=== PATIENT | male | born 1955 | race African-American/Black ===

== ENCOUNTER 2016-04-09 11:46 | Emergency (ER) | payer MEDICAID ==
[~2016-04-09] VITALS: Ht 175.3 cm; Wt 94.3 kg
[~2016-04-09 11:46] MED LIST: ADVIL100 M2 ORAL; AMLODIPINE BESY10 MG ORAL; AMLODIPINE-ATO1 EAC4 ORAL; ANTIVERT12.5 MG ORAL; ASPIRIN EC81 MG ORAL; CARVEDILOL25 MG ORAL; HYDROCHLOROTHIA25 MG ORAL; IMODIUM MULTI-1 EACH PO; LISINOPRIL40 MG ORAL; LISINOPRIL5 MG ORAL; MULTILEX-T-M W1 EACH PO; OMEPRAZOLE10 M1 ORAL; OMEPRAZOLE20 M2 ORAL; PRAVASTATIN SOD20 M1 ORAL
[2016-04-09 12:15] VITALS: BP 108/63
--- NOTE | 2016-04-09 12:29 | Emergency Room Report ---
History of Present Illness General Chief Complaint: Chest Pain Source: Patient Present Illness HPI Patient presents with complaints of epigastric discomfort Burning sensation into the mid esophageal area Patient was dealing with this problem over several months He was seen by his primary physician after discharge from the hospital 2 weeks ago states that he was set up for blood work and evaluation last week but never happened The burning sensation is worsened Denies any vomiting or diarrhea Patient's states that he needs to see a GI specialist Patient denies any fevers or chills Pain is 4/10 burning sensation Allergies: Coded Allergies: No Known Allergies (Unverified , 12/18/14) Patient History Past Medical History: see triage record Pertinent Family History: none Reviewed Nursing Documentation: PMH: Agreed, PSxH: Agreed Nursing Documentation-PMH Past Medical History: No History, Except For Hx Cardiac Problems: Yes - [place] in 2005 Hx Hypertension: Yes Hx Cancer: No Hx Gastrointestinal Problems: Yes - GERD Hx Neurological Problems: No Review of Systems All Other Systems: negative except mentioned in HPI Physical Exam Vital Signs Date Time Temp Pulse Resp B/P Pulse Ox O2 Delivery O2 Flow Rate FiO2 04/09/16 11:58 98.2 79 18 102/71 94 Room Air Sp02 EP Interpretation: reviewed, normal General Appearance: well appearing, no apparent distress Head: normocephalic, atraumatic Eyes: bilateral eye EOMI, bilateral eye PERRL ENT: hearing grossly normal, normal pharynx, TMs + canals normal, uvula midline Neck: full range of motion, supple, no meningismus, no bony tend Respiratory: lungs clear, normal breath sounds, no rhonchi, no respiratory distress, no retraction, no accessory muscle use Cardiovascular #1: normal peripheral pulses, regular rate, rhythm, no edema, no gallop, no JVD, no murmur Gastrointestinal: normal bowel sounds, non tender, soft, no mass, no organomegaly, non-distended, no guarding, no hernia, no pulsatile mass, no rebound Genitourinary: no CVA tenderness Musculoskeletal: normal inspection Neurologic: oriented x3, responsive, generation manager III-XII nml as tested, motor strength/ tone normal, sensory intact Psychiatric: mood/affect normal Skin: normal color, no rash, warm/dry, palpation normal Lymphatic: normal inspection, no adenopathy Medical Decision Making Diagnostic Impression: Primary Impression: Chest pain Additional Impressions: Renal insufficiency Abdominal pain ER Course Patient is a fairly complex patient with multiple differential to consideration including but not limited to cardiac cardiopulmonary and vascular emergencies patients discomfort and presentation appears to be mainly epigastric labs repeated were negative ekg shows no change pt has had a recent hosptalization and is stable for close outpatient follow up Labs Test 04/09/16 12:30 White Blood Count 9.4 K/UL (4.8-10.8) Red Blood Count 5.28 M/UL (4.70-6.10) Hemoglobin 15.8 G/DL (14.2-18.0) Hematocrit 49.2 % (42.0-52.0) Mean Corpuscular Volume 93 FL (80-99) Mean Corpuscular Hemoglobin 29.9 PG (27.0-31.0) Mean Corpuscular Hemoglobin Concent 32.1 G/DL (32.0-36.0) Red Cell Distribution Width 12.6 % (11.6-14.8) Platelet Count 324 K/UL (150-450) Mean Platelet Volume 7.9 FL (6.5-10.1) Neutrophils (%) (Auto) 70.5 % (45.0-75.0) Lymphocytes (%) (Auto) 18.6 % (20.0-45.0) Monocytes (%) (Auto) 5.9 % (1.0-10.0) Eosinophils (%) (Auto) 4.0 % (0.0-3.0) Basophils (%) (Auto) 1.1 % (0.0-2.0) Sodium Level 141 mEQ/L (135-145) Potassium Level 4.1 mEQ/L (3.4-4.9) Chloride Level 99 mEQ/L (98-107) Carbon Dioxide Level 29 mEQ/L (20-30) Anion Gap 13 (5-15) Blood Urea Nitrogen 29 mg/dL (7-23) Creatinine 2.9 mg/dL (0.7-1.2) Estimat Glomerular Filtration Rate 26.9 mL/min (>60) Glucose Level 144 mg/dL (74-106) Calcium Level 9.5 mg/dL (8.6-10.2) Total Bilirubin 0.4 mg/dL (0.0-1.2) Aspartate Amino Transf (AST/SGOT) 23 U/L (5-40) Alanine Aminotransferase (ALT/SGPT) 25 U/L (3-41) Alkaline Phosphatase 63 U/L (40-129) Troponin I < 0.30 ng/mL (<=0.30) Total Protein 7.1 g/dL (6.6-8.7) Albumin 4.1 g/dL (3.5-5.2) Globulin 3.0 g/dL Albumin/Globulin Ratio 1.3 (1.0-2.7) Lipase 65 U/L (< 60) EKG Diagnostic Results Rate: normal Rhythm: NSR ST Segments: other - non specific st and t wave changes Rhythm Strip Diag. Results EP Interpretation: yes Rate: 77 Rhythm: NSR, no PVC's, no ectopy Last Vital Signs Date Time Temp Pulse Resp B/P Pulse Ox O2 Delivery O2 Flow Rate FiO2 04/09/16 12:15 98.6 72 18 108/63 95 Room Air Status: improved Disposition: HOME, SELF-CARE Condition: Improved Scripts Famotidine (PEPCID) 40 Mg Tablet 40 MG PO DAILY, #7 TAB 0 Refills Prov: CAMRON LAWRENCE D.O. 04/09/16 Additional Instructions: Patient is provided with the discharge instructions notified to follow up with primary doctor in the next 2-3 days otherwise return to the er with any worsening symptoms. CAMRON LAWRENCE D.O. Apr 09, 2016 12:29
[2016-04-09 12:41] LABS: BASOPHILS % (AUTO) 1.1 % (0.0-2.0); LYMPHOCYTES % (AUTO) 18.6 % (20.0-45.0); MEAN CORPUSCULAR HEMOGLOBIN 29.9 PG (27.0-31.0); MEAN CORPUSCULAR HGB CONC 32.1 G/DL (32.0-36.0); MEAN CORPUSCULAR VOLUME 93 FL (80-99); MEAN PLATELET VOLUME 7.9 FL (6.5-10.1); MONOCYTES % (AUTO) 5.9 % (1.0-10.0); NEUTROPHILS % (AUTO) 70.5 % (45.0-75.0); PLATELET COUNT 324 K/UL (150-450); RED BLOOD COUNT 5.28 M/UL (4.70-6.10); RED CELL DISTRIBUTION WIDTH 12.6 % (11.6-14.8); WHITE BLOOD COUNT 9.4 K/UL (4.8-10.8)
[2016-04-09 12:57] LABS: ALBUMIN/GLOBULIN RATIO 1.3 (1.0-2.7); CALCIUM 9.5 mg/dL (8.6-10.2); CREATININE 2.9 mg/dL (0.7-1.2); GLOMERULAR FILTRATION RATE 26.9 mL/min (>60); POTASSIUM 4.1 mEQ/L (3.4-4.9); TOTAL PROTEIN 7.1 g/dL (6.6-8.7)
[2016-04-09 12:59] LABS: TROPONIN I < 0.30 ng/mL (<=0.30)
[2016-04-09] MEDS ORDERED: Dicyclomine HCl 10mg/5ml oral soln ORAL ONE (13:00)
[2016-04-09] MEDS ORDERED: Mylanta II UD 30ml ORAL ONE (13:00)
[2016-04-09] MEDS ORDERED: Lidocaine 2% Visc 15ml soln ORAL ONE (13:00)
[2016-04-09] MEDS ORDERED: PEPCID40 MG PO (13:48)
[2016-04-09 14:02] VITALS: BP 115/68
== END 2016-04-09 14:02 | disposition home or self-care (01) ==
LOC: EMR 12:27
DX: R07.9 Chest pain, unspecified (principal); N28.9 Disorder of kidney and ureter, unspecified; R10.13 Epigastric pain; I10 Essential (primary) hypertension; K21.9 Gastro-esophageal reflux disease without esophagitis; I25.2 Old myocardial infarction
CPT/HCPCS: 36415; 80053; 83690; 84484; 85025; 99283

== ENCOUNTER 2016-04-16 15:10 | Emergency (ER) | payer MEDICAID ==
[~2016-04-16] VITALS: Ht 175.3 cm; Wt 94.3 kg
[~2016-04-16 15:10] MED LIST changes: +PEPCID40 MG PO
[2016-04-16 15:30] VITALS: BP 115/76
--- NOTE | 2016-04-16 16:39 | Emergency Room Report ---
History of Present Illness General Chief Complaint: Pain Source: Patient Present Illness HPI 60 y/o male c/o pain in right great toe x 3 days. States pain occurred while sleeping and is worse with walking. who is accompanying patient at bedside states patient eats a lot of pork and red meat daily and has drank a lot of the past but has been cutting back recently. States that patient has FH of gout in father. No relieving factors and denies taking ibuprofen or APAP. Denies any trauma or DMII or any discharge, drainage, rheumatoid condition or arthritis. Allergies: Coded Allergies: No Known Allergies (Unverified , 12/18/14) Patient History Past Medical History: see triage record Past Surgical History: none Pertinent Family History: none Social History: Reports: alcohol use Immunizations: UTD Reviewed Nursing Documentation: PMH: Agreed, PSxH: Agreed Nursing Documentation-PMH Past Medical History: No History, Except For Hx Cardiac Problems: Yes - [place] in 2006 Hx Hypertension: Yes Hx Cancer: No Hx Gastrointestinal Problems: Yes - GERD Hx Neurological Problems: No Review of Systems All Other Systems: negative except mentioned in HPI Physical Exam Vital Signs Date Time Temp Pulse Resp B/P Pulse Ox O2 Delivery O2 Flow Rate FiO2 04/16/16 15:21 98.1 71 15 115/76 98 Room Air Sp02 EP Interpretation: reviewed, normal General Appearance: no apparent distress, alert, GCS 15, non-toxic Head: normocephalic, atraumatic Eyes: bilateral eye PERRL, bilateral eye normal inspection ENT: hearing grossly normal, no angioedema, normal voice Neck: full range of motion, supple/symm/no masses Respiratory: chest non-tender, lungs clear, normal breath sounds, speaking full sentences Cardiovascular #1: regular rate, rhythm, no edema Cardiovascular #2: 2+ dorsalis pedis (R), 2+ dorsalis pedis (L) Musculoskeletal: gait/station normal, normal range of motion, inflammation - right 1st MTP, swelling - right 1st MTP, tender - right 1st MTP Neurologic: alert, oriented x3, responsive, motor strength/tone normal, sensory intact, speech normal Psychiatric: judgement/insight normal, memory normal, mood/affect normal, no suicidal/homicidal ideation Skin: normal color, no rash, warm/dry, well hydrated Lymphatic: no adenopathy Medical Decision Making PA Attestation Dr. Anglin is my supervising physician with whom patient management has been discussed with. 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 presents to the ED c/o right foot pain x 3 days Ddx considered but are not limited to arthritis, gout attack, cellulitis Vital signs: are WNL, pt. is afebrile H&PE are most consistent with gout attack ORDERS: CBC, CMP, Uric Acid, XR right foot ED INTERVENTIONS: Prednisone 60mg. DISCHARGE: At this time pt. is stable for d/c to home. Will provide printed patient care instructions, and any necessary prescriptions. Care plan and follow up instructions have been discussed with the patient prior to discharge. Laboratory Tests Test 04/16/16 16:10 White Blood Count 11.4 K/UL (4.8-10.8) H Red Blood Count 5.43 M/UL (4.70-6.10) Hemoglobin 16.3 G/DL (14.2-18.0) Hematocrit 49.8 % (42.0-52.0) Mean Corpuscular Volume 92 FL (80-99) Mean Corpuscular Hemoglobin 29.9 PG (27.0-31.0) Mean Corpuscular Hemoglobin Concent 32.7 G/DL (32.0-36.0) Red Cell Distribution Width 12.8 % (11.6-14.8) Platelet Count 373 K/UL (150-450) Mean Platelet Volume 7.4 FL (6.5-10.1) Neutrophils (%) (Auto) 70.9 % (45.0-75.0) Lymphocytes (%) (Auto) 18.9 % (20.0-45.0) L Monocytes (%) (Auto) 6.4 % (1.0-10.0) Eosinophils (%) (Auto) 3.0 % (0.0-3.0) Basophils (%) (Auto) 0.8 % (0.0-2.0) Sodium Level 140 mEQ/L (135-145) Potassium Level 4.3 mEQ/L (3.4-4.9) Chloride Level 100 mEQ/L (98-107) Carbon Dioxide Level 24 mEQ/L (20-30) Anion Gap 16 (5-15) H Blood Urea Nitrogen 35 mg/dL (7-23) H Creatinine 3.2 mg/dL (0.7-1.2) H Estimate Glomerular Filtration Rate 24.0 mL/min (>60) Glucose Level 87 mg/dL (74-106) Uric Acid 11.7 mg/dL (3.0-7.5) H Calcium Level 9.2 mg/dL (8.6-10.2) Total Bilirubin 0.2 mg/dL (0.0-1.2) Aspartate Amino Transferase (AST) 24 U/L (5-40) Alanine Aminotransferase (ALT) 26 U/L (3-41) Alkaline Phosphatase 66 U/L (40-129) Total Protein 7.4 g/dL (6.6-8.7) Albumin 4.3 g/dL (3.5-5.2) Globulin 3.1 g/dL Albumin/Globulin Ratio 1.3 (1.0-2.7) Other X-Ray Diagnostic Results Other X-Ray Diagnostic Results : X-Ray Ordered: Right foot Date: Apr 16, 2016 EP Interpretation: Yes Findings: no fractures, no dislocation, no soft tissue swelling Number of Views: 3 Last Vital Signs Date Time Temp Pulse Resp B/P Pulse Ox O2 Delivery O2 Flow Rate FiO2 04/16/16 15:30 98.1 71 15 115/76 98 Room Air Disposition: HOME, SELF-CARE Condition: Stable Scripts Methylprednisolone* (MEDROL*) 4 Mg Tablet 4 MG ORAL DAILY for 6 Days, #1 PACK 0 Refills Prov: BARRETT SIMMONS 04/16/16 Referrals: LORY MOLINA,REFERRING (PCP) Additional Instructions: Patient advised to follow up with PCP regarding poor renal function and management of gout. BARRETT SIMMONS Apr 16, 2016 16:38
[2016-04-16 16:58] LABS: BASOPHILS % (AUTO) 0.8 % (0.0-2.0); LYMPHOCYTES % (AUTO) 18.9 % (20.0-45.0); MEAN CORPUSCULAR HEMOGLOBIN 29.9 PG (27.0-31.0); MEAN CORPUSCULAR HGB CONC 32.7 G/DL (32.0-36.0); MEAN CORPUSCULAR VOLUME 92 FL (80-99); MEAN PLATELET VOLUME 7.4 FL (6.5-10.1); MONOCYTES % (AUTO) 6.4 % (1.0-10.0); NEUTROPHILS % (AUTO) 70.9 % (45.0-75.0); PLATELET COUNT 373 K/UL (150-450); RED BLOOD COUNT 5.43 M/UL (4.70-6.10); RED CELL DISTRIBUTION WIDTH 12.8 % (11.6-14.8); WHITE BLOOD COUNT 11.4 K/UL (4.8-10.8)
[2016-04-16 17:12] LABS: ALBUMIN/GLOBULIN RATIO 1.3 (1.0-2.7); CALCIUM 9.2 mg/dL (8.6-10.2); CREATININE 3.2 mg/dL (0.7-1.2); POTASSIUM 4.3 mEQ/L (3.4-4.9); TOTAL PROTEIN 7.4 g/dL (6.6-8.7); URIC ACID 11.7 mg/dL (3.0-7.5)
[2016-04-16] MEDS ORDERED: PredniSONE 20mg tab ORAL ONE (17:15)
[2016-04-16] MEDS ORDERED: INDOMETHACIN50 MG PO (17:24)
[2016-04-16 17:30] VITALS: BP 105/70
[2016-04-16 17:35] VITALS: BP 105/70
[2016-04-16] MEDS ORDERED: MEDROL4 MG ORAL (17:40)
--- NOTE | 2016-05-16 12:15 | Diagnostic Imaging Report ---
Indication: Pain Comparison: None Findings: 3 views of the right foot were obtained. No acute fractures, malalignment, erosions or periostitis are identified. Narrowing and osteophyte formation of the first MTP joint demonstrated. Bone mineralization is within normal limits. Soft tissues are unremarkable. Impression: No acute injury. First MTP osteoarthritis. Probable flatfoot
== END 2016-04-16 17:35 | disposition home or self-care (01) ==
LOC: EMR 15:50
DX: M10.471 Other secondary gout, right ankle and foot (principal); N18.4 Chronic kidney disease, stage 4 (severe); I10 Essential (primary) hypertension; I25.2 Old myocardial infarction; K21.9 Gastro-esophageal reflux disease without esophagitis
CPT/HCPCS: 36415; 80053; 84550; 85025; 99283

== ENCOUNTER 2016-07-07 08:20 | Emergency (ER) | payer MEDICAID ==
[2016-07-07] VITALS (8 sets, daily range): BP systolic 125–167; BP diastolic 93–110
[~2016-07-07] VITALS: Ht 175.3 cm; Wt 95.3 kg
[~2016-07-07 08:20] MED LIST changes: +INDOMETHACIN50 MG PO; +MEDROL4 MG ORAL
[2016-07-07] MEDS: Nitroglycerin Subl 0.4mg tab (Bottle Of 25) SL PRN ×3 (09:05→09:51)
[2016-07-07 09:24] LABS: ALBUMIN/GLOBULIN RATIO 1.2 (1.0-2.7); CALCIUM 10.2 mg/dL (8.6-10.2); CREATININE 2.4 mg/dL (0.7-1.2); GLOMERULAR FILTRATION RATE 33.5 mL/min (>60); POTASSIUM 4.2 mEQ/L (3.4-4.9); TOTAL PROTEIN 7.5 g/dL (6.6-8.7)
[2016-07-07 09:25] LABS: EOSINOPHILS % (AUTO) 3.2 % (0.0-3.0); LYMPHOCYTES % (AUTO) 18.8 % (20.0-45.0); MEAN CORPUSCULAR HEMOGLOBIN 28.7 PG (27.0-31.0); MEAN CORPUSCULAR HGB CONC 31.3 G/DL (32.0-36.0); MEAN CORPUSCULAR VOLUME 92 FL (80-99); MONOCYTES % (AUTO) 7.6 % (1.0-10.0); NEUTROPHILS % (AUTO) 69.5 % (45.0-75.0); PLATELET COUNT 331 K/UL (150-450); RED BLOOD COUNT 5.93 M/UL (4.70-6.10); RED CELL DISTRIBUTION WIDTH 13.7 % (11.6-14.8); TROPONIN I < 0.30 ng/mL (<=0.30); WHITE BLOOD COUNT 9.7 K/UL (4.8-10.8)
[2016-07-07 09:35] LABS: CKMB 3.4 ng/mL (< 6.7)
--- NOTE | 2016-07-07 10:24 | Emergency Room Report ---
History of Present Illness General Chief Complaint: Chest Pain Source: Patient Present Illness HPI 61-year-old male presents ED complaining of chest pain which started yesterday. Started at rest. Pain is pressure-like, left-sided, 7/10, nonradiating. No other aggravating relieving factors. Denies shortness of breath. Notes history of high blood pressure and prior OK. States that he ran out of his blood pressure medications several days ago. Denies smoking or drug use. No other aggravating or relieving factors. Denies any other associated symptoms Allergies: Coded Allergies: No Known Allergies (Unverified , 12/18/14) Patient History Past Medical History: HTN, [place], GERD Past Surgical History: none Pertinent Family History: none Social History: Denies: alcohol use, drug use, smoking Immunizations: UTD Reviewed Nursing Documentation: PMH: Agreed, PSxH: Agreed Nursing Documentation-PMH Hx Cardiac Problems: Yes - [place] in 2006 Hx Hypertension: Yes Hx Cancer: No Hx Gastrointestinal Problems: Yes - GERD Hx Neurological Problems: No Review of Systems All Other Systems: negative except mentioned in HPI Physical Exam Vital Signs Date Time Temp Pulse Resp B/P Pulse Ox O2 Delivery O2 Flow Rate FiO2 07/07/16 08:23 97.9 90 20 149/104 94 Room Air 07/07/16 09:30 2.0 Sp02 EP Interpretation: reviewed, normal General Appearance: no apparent distress, alert, GCS 15, non-toxic Head: normocephalic, atraumatic Eyes: bilateral eye PERRL, bilateral eye normal inspection ENT: hearing grossly normal, normal pharynx, no angioedema, normal voice Neck: full range of motion, supple/symm/no masses Respiratory: chest non-tender, lungs clear, normal breath sounds, speaking full sentences Cardiovascular #1: regular rate, rhythm, no edema Cardiovascular #2: 2+ carotid (R), 2+ carotid (L), 2+ radial (R), 2+ radial (L) , 2+ dorsalis pedis (R), 2+ dorsalis pedis (L) Gastrointestinal: normal bowel sounds, non tender, soft, non-distended, no guarding, no rebound Rectal: deferred Genitourinary: normal inspection, no CVA tenderness Musculoskeletal: back normal, gait/station normal, normal range of motion, non- tender Neurologic: alert, oriented x3, responsive, motor strength/tone normal, sensory intact, speech normal Psychiatric: judgement/insight normal, memory normal, mood/affect normal, no suicidal/homicidal ideation Reflexes: 3+ bicep (R), 3+ bicep (L), 3+ tricep (R), 3+ tricep (L), 3+ knee (R) , 3+ knee (L) Skin: normal color, no rash, warm/dry, well hydrated Lymphatic: no adenopathy Medical Decision Making Diagnostic Impression: Primary Impression: ACS (acute coronary syndrome) Additional Impressions: Renal failure HTN (hypertension) Qualified Codes: I10 - Essential (primary) hypertension ER Course Hospital Course 61-year-old male presents ED complaining of left-sided chest pain Differential diagnoses include: OK/unstable angina, contusion, muscle strain, PTX, rib fracture Clinical course Patient placed on stretcher. on lunchroom monitor. After initial history and physical I ordered labs, EKG, chest x-ray, NTG X 3 labs reviewed- no leukocytosis, hb/hct stable, BUN/Cr elevated, trop negative EKG - NSR, no acute changes Chest x-ray- no acute process ASA given. patient BP initially elevated and improved after nitroglycerin x3. Because of insurance patient will be transferred I. I feel this is a highly complex case requiring extensive working including EKG/Rhythm strip, Xray/CT/US, Blood/urine lab work, repeat exams while in ED, and administration of strong opiates/narcotics for pain control, admission to hospital or close patient follow up. Diagnosis - ACS, renal failure, hypertension Transferred in serious condition Labs Test 07/07/16 08:50 White Blood Count 9.7 K/UL (4.8-10.8) Red Blood Count 5.93 M/UL (4.70-6.10) Hemoglobin 17.0 G/DL (14.2-18.0) Hematocrit 54.4 % (42.0-52.0) Mean Corpuscular Volume 92 FL (80-99) Mean Corpuscular Hemoglobin 28.7 PG (27.0-31.0) Mean Corpuscular Hemoglobin Concent 31.3 G/DL (32.0-36.0) Red Cell Distribution Width 13.7 % (11.6-14.8) Platelet Count 331 K/UL (150-450) Mean Platelet Volume 8.0 FL (6.5-10.1) Neutrophils (%) (Auto) 69.5 % (45.0-75.0) Lymphocytes (%) (Auto) 18.8 % (20.0-45.0) Monocytes (%) (Auto) 7.6 % (1.0-10.0) Eosinophils (%) (Auto) 3.2 % (0.0-3.0) Basophils (%) (Auto) 1.0 % (0.0-2.0) Sodium Level 139 mEQ/L (135-145) Potassium Level 4.2 mEQ/L (3.4-4.9) Chloride Level 100 mEQ/L (98-107) Carbon Dioxide Level 26 mEQ/L (20-30) Anion Gap 13 (5-15) Blood Urea Nitrogen 29 mg/dL (7-23) Creatinine 2.4 mg/dL (0.7-1.2) Estimat Glomerular Filtration Rate 33.5 mL/min (>60) Glucose Level 97 mg/dL (74-106) Calcium Level 10.2 mg/dL (8.6-10.2) Total Bilirubin 0.5 mg/dL (0.0-1.2) Aspartate Amino Transf (AST/SGOT) 35 U/L (5-40) Alanine Aminotransferase (ALT/SGPT) 46 U/L (3-41) Alkaline Phosphatase 63 U/L (40-129) Total Creatine Kinase 83 U/L (38-174) Creatine Kinase MB 3.4 ng/mL (< 6.7) Creatine Kinase MB Relative Index 4.0 Troponin I < 0.30 ng/mL (<=0.30) Pro-B-Type Natriuretic Peptide 157 pg/mL (0-125) Total Protein 7.5 g/dL (6.6-8.7) Albumin 4.2 g/dL (3.5-5.2) Globulin 3.3 g/dL Albumin/Globulin Ratio 1.2 (1.0-2.7) EKG Diagnostic Results Rate: normal Rhythm: NSR ST Segments: no acute changes ASA given to the pt in ED: Yes Rhythm Strip Diag. Results EP Interpretation: yes Rhythm: NSR, no PVC's, no ectopy Chest X-Ray Diagnostic Results EP Interpretation: Yes Findings: no consolidation, no effusion, no pneumothorax, no acute cardiopulmonary disease Number of Views: 1 Last Vital Signs Date Time Temp Pulse Resp B/P Pulse Ox O2 Delivery O2 Flow Rate FiO2 07/07/16 10:00 80 18 148/105 97 Nasal Cannula 2.0 07/07/16 09:39 97.9 Status: improved Disposition: XFER SHT-TRM HOSP Condition: Serious Referrals: LORY MOLINA,REFERRING (PCP) JOAN LOOMIS M.D. Jul 07, 2016 10:24
--- NOTE | 2016-07-07 12:00 | Diagnostic Imaging Report ---
Indications: Chest pain Technique: Portable AP chest Findings: Comparison: 02/26/2016 Inspiratory effort has modestly improved. Linear density persists in right midlung. Left lung remains clear. Cardiac silhouette remains upper limits of normal in size. Pulmonary vasculature remains within normal limits. Mild elongation of thoracic aorta unchanged. Otherwise, no abnormal mediastinal widening. No pleural disease demonstrated. IMPRESSION: No evidence of acute cardiopulmonary disease, unchanged Persistent subsegmental atelectasis versus scarring versus focal prominence of right minor fissure right midlung
== END 2016-07-07 13:34 | disposition short-term general hospital (02) ==
LOC: EMR 08:59 → EDBEDREQ 09:07 → EMR 13:34
DX: I24.9 Acute ischemic heart disease, unspecified (principal); I10 Essential (primary) hypertension; N19 Unspecified kidney failure; I25.2 Old myocardial infarction; K21.9 Gastro-esophageal reflux disease without esophagitis
CPT/HCPCS: 36415; 71010; 80053; 80300; 82550; 82553; 83880; 84484; 85025; 93005; 96360; 96374; 99285; J0360; J7040

== ENCOUNTER 2016-09-08 17:45 | Emergency (ER) | payer MEDICAID ==
[~2016-09-08] VITALS: Ht 175.3 cm; Wt 95.3 kg
[2016-09-08 18:15] VITALS: BP 172/100
[2016-09-08] MEDS ORDERED: Lidocaine 2% Visc 15ml soln ORAL ONE (18:30)
[2016-09-08] MEDS ORDERED: Famotidine 20 MG/ 2ML VIAL IVP ONE (18:30)
[2016-09-08] MEDS ORDERED: Lisinopril 10mg tab ORAL ONE (18:30)
[2016-09-08] MEDS ORDERED: Mylanta II UD 30ml ORAL ONE (18:30)
[2016-09-08 18:55] LABS: BASOPHILS % (AUTO) 1.3 % (0.0-2.0); EOSINOPHILS % (AUTO) 3.5 % (0.0-3.0); LYMPHOCYTES % (AUTO) 22.5 % (20.0-45.0); MEAN CORPUSCULAR HEMOGLOBIN 30.9 PG (27.0-31.0); MEAN CORPUSCULAR HGB CONC 33.3 G/DL (32.0-36.0); MEAN CORPUSCULAR VOLUME 93 FL (80-99); MEAN PLATELET VOLUME 8.4 FL (6.5-10.1); MONOCYTES % (AUTO) 7.1 % (1.0-10.0); NEUTROPHILS % (AUTO) 65.6 % (45.0-75.0); PLATELET COUNT 299 K/UL (150-450); RED CELL DISTRIBUTION WIDTH 13.4 % (11.6-14.8); WHITE BLOOD COUNT 9.3 K/UL (4.8-10.8)
[2016-09-08] MEDS ORDERED: LISINOPRIL5 MG ORAL (19:02)
[2016-09-08] MEDS ORDERED: ATORVASTATIN CA20 MG ORAL (19:02)
[2016-09-08] MEDS ORDERED: ISOSORBIDE PO (19:02)
--- NOTE | 2016-09-08 19:02 | Emergency Room Report ---
History of Present Illness General Chief Complaint: Chest Pain Source: Patient Present Illness HPI The patient presents with heartburn and epigastric burning. The ground for several weeks now. He was transferred recently with a cardiac evaluation. He states there was no damage to his heart at that time. He is on multiple medications for high blood pressure. He did not take his medicines today. This pain is nonexertional. Patient denies any fevers, productive cough, vomiting, melena. Also complains about versus as his waist. He says that he's been yelling at his significant other. Denies any sore throat at this time. Allergies: Coded Allergies: No Known Allergies (Unverified , 12/18/14) Patient History Past Medical History: see triage record Social History: Reports: alcohol use, Denies: smoking Reviewed Nursing Documentation: PMH: Agreed, PSxH: Agreed Nursing Documentation-PMH Hx Cardiac Problems: Yes - [place] in 2005 Hx Hypertension: Yes Hx Cancer: No Hx Gastrointestinal Problems: Yes - GERD Hx Neurological Problems: No Physical Exam Vital Signs Date Time Temp Pulse Resp B/P Pulse Ox O2 Delivery O2 Flow Rate FiO2 09/08/16 17:57 98.2 61 15 171/116 92 Room Air Medical Decision Making Diagnostic Impression: Primary Impression: GERD (gastroesophageal reflux disease) Additional Impressions: Renal insufficiency HTN (hypertension) ER Course Patient presents with epigastric burning and esophageal reflux symptoms. We to exclude cardiac cause. Pulses blood pressure is high at this time. Evaluation be with EKG, labs and chest x-ray. The patient will be treated with Pepcid, and a GI cocktail with lidocaine and Mylanta. EKG with bradycardia and T-wave abnormalities. Chest x-ray is unremarkable. Labs are significant for a negative troponin and stable renal insufficiency. Patient is improved with treatments a. The pain is esophagus is better. He does complain of a headache. Tylenol codeine was given a. Her graft discussed with the patient about the need to have evaluation for backdoor pylori with endoscopy. In addition he is to have endoscopy to look at his vocal cords. His blood pressure was improved at discharge. The patient is stable for outpatient observation and treatment. Laboratory Tests Test 09/08/16 18:15 09/08/16 21:19 White Blood Count 9.3 K/UL (4.8-10.8) Red Blood Count 5.20 M/UL (4.70-6.10) Hemoglobin 16.0 G/DL (14.2-18.0) Hematocrit 48.2 % (42.0-52.0) Mean Corpuscular Volume 93 FL (80-99) Mean Corpuscular Hemoglobin 30.9 PG (27.0-31.0) Mean Corpuscular Hemoglobin Concent 33.3 G/DL (32.0-36.0) Red Cell Distribution Width 13.4 % (11.6-14.8) Platelet Count 299 K/UL (150-450) Mean Platelet Volume 8.4 FL (6.5-10.1) Neutrophils (%) (Auto) 65.6 % (45.0-75.0) Lymphocytes (%) (Auto) 22.5 % (20.0-45.0) Monocytes (%) (Auto) 7.1 % (1.0-10.0) Eosinophils (%) (Auto) 3.5 % (0.0-3.0) H Basophils (%) (Auto) 1.3 % (0.0-2.0) Prothrombin Time 10.5 SEC (9.30-11.50) Prothrombin Time INR 1.0 (0.9-1.1) PTT 27 SEC (23-33) Sodium Level 143 mEQ/L (135-145) Potassium Level 4.4 mEQ/L (3.4-4.9) Chloride Level 100 mEQ/L (98-107) Carbon Dioxide Level 28 mEQ/L (20-30) Anion Gap 15 (5-15) Blood Urea Nitrogen 26 mg/dL (7-23) H Creatinine 2.4 mg/dL (0.7-1.2) H Estimate Glomerular Filtration Rate 33.5 mL/min (>60) Glucose Level 88 mg/dL (74-106) Calcium Level 10.2 mg/dL (8.6-10.2) Total Bilirubin 0.3 mg/dL (0.0-1.2) Aspartate Amino Transferase (AST) 48 U/L (5-40) H Alanine Aminotransferase (ALT) 49 U/L (3-41) H Alkaline Phosphatase 68 U/L (40-129) Total Creatine Kinase 159 U/L (38-174) Troponin I < 0.30 ng/mL (<=0.30) Pro-B-Type Natriuretic Peptide 139 pg/mL (0-125) H Total Protein 8.4 g/dL (6.6-8.7) Albumin 4.6 g/dL (3.5-5.2) Globulin 3.8 g/dL Albumin/Globulin Ratio 1.2 (1.0-2.7) Urine Color Pending Urine Appearance Pending Urine pH Pending Urine Specific [place] Pending Urine Protein Pending Urine Glucose (UA) Pending Urine Ketones Pending Urine Occult Blood Pending Urine Nitrite Pending Urine Bilirubin Pending Urine Urobilinogen Pending Urine Leukocyte Esterase Pending Urine Opiates Screen Pending Urine Barbiturates Screen Pending Phencyclidine (PCP) Screen Pending Urine Amphetamines Screen Pending Urine Benzodiazepines Screen Pending Urine Cocaine Screen Pending Urine Marijuana (THC) Screen Pending EKG Diagnostic Results Rate: bradycardiac ST Segments: no acute changes Rhythm Strip Diag. Results EP Interpretation: yes Rhythm: no PVC's, no ectopy, other - abdoul Chest X-Ray Diagnostic Results Chest X-Ray Ordered: Yes # of Views/Limited/Complete: 1 View EP Interpretation: No Interpretation: no consolidation, no effusion, no pneumothorax Indication: Chest Pain Impression: No acute disease Interpreting ER Provider: Ruth Status: improved Disposition: HOME, SELF-CARE Condition: Improved Scripts Mag Hydrox/Al Hydrox/Simeth (MAALOX MAXIMUM STRENGTH SUSP) 355 Ml Oral.susp 2 TBS PO Q6HR Y for For Pain, #355 ML Prov: Zacarias Miranda M.D. 09/08/16 Omeprazole (OMEPRAZOLE) 20 Mg Capsule.dr 20 MG ORAL DAILY, #30 CAP Prov: Zacarias Miranda M.D. 09/08/16 Acetaminophen With Codeine (T#3) (TYLENOL #3 TAB*) Y Tab 1 TAB ORAL Q4H Y for For Pain, #14 TAB Prov: Zacarias Miranda M.D. 09/08/16 Referrals: LORY MOLINA,REFERRING (PCP) Zacarias Miranda M.D. Sep 08, 2016 19:02
[2016-09-08] MEDS ORDERED: NITROGLYCERIN0.4 MG SL (19:11)
[2016-09-08 19:12] LABS: ALANINE AMINOTRANSFERASE 49 U/L (3-41); ALBUMIN/GLOBULIN RATIO 1.2 (1.0-2.7); ANION GAP 15 (5-15); ASPARTATE AMINO TRANSFERASE 48 U/L (5-40); CALCIUM 10.2 mg/dL (8.6-10.2); CARBON DIOXIDE 28 mEQ/L (20-30); CHLORIDE 100 mEQ/L (98-107); CREATININE 2.4 mg/dL (0.7-1.2); GLOMERULAR FILTRATION RATE 33.5 mL/min (>60); HEMOLYSIS 38; POTASSIUM 4.4 mEQ/L (3.4-4.9); SODIUM 143 mEQ/L (135-145); TOTAL PROTEIN 8.4 g/dL (6.6-8.7); TROPONIN I < 0.30 ng/mL (<=0.30)
[2016-09-08 19:15] VITALS: BP 144/107
[2016-09-08 19:22] LABS: PROTHROMBIN TIME 10.5 SEC (9.30-11.50)
[2016-09-08] MEDS ORDERED: Tylenol #3 tab (300mg/30mg) ORAL ONE (21:45)
[2016-09-08 21:46] LABS: APPEARANCE,URINE CLEAR; KETONES,URINE NEGATIVE (NEGATIVE); LEUKOCYTE ESTERASE ,URINE NEGATIVE (NEGATIVE); NITRITE,URINE NEGATIVE (NEGATIVE); PH,URINE 5 (4.5-8.0); PROTEIN,URINE 2+ (NEGATIVE); UROBILINOGEN,URINE NORMAL MG/DL (0.0-1.0)
[2016-09-08] MEDS ORDERED: OMEPRAZOLE20 M2 ORAL (21:52)
[2016-09-08] MEDS ORDERED: MAALOX MAXIMUM355 M1 PO (21:52)
[2016-09-08] MEDS ORDERED: ACETAMINOPHEN-1 EAC1 ORAL (21:52)
[2016-09-08 21:58] VITALS: BP 149/94
[2016-09-08 22:02] LABS: RBC,URINE 0-2 /HPF (0 - 0); WBC,URINE 0-2 /HPF (0 - 0)
[2016-09-08 22:05] VITALS: BP 149/94
--- NOTE | 2016-09-09 09:40 | Diagnostic Imaging Report ---
Indication: Chest pain Technique: One view of the chest Comparison: 07/09/16 Findings: Lungs and pleural spaces are clear. Heart size is borderline enlarged. No significant interim change Impression: No acute process
== END 2016-09-08 22:09 | disposition home or self-care (01) ==
LOC: EMR 18:46
DX: K21.9 Gastro-esophageal reflux disease without esophagitis (principal); N28.9 Disorder of kidney and ureter, unspecified; I10 Essential (primary) hypertension; I25.2 Old myocardial infarction; R00.1 Bradycardia, unspecified
CPT/HCPCS: 36415; 71010; 80053; 80300; 81003; 82550; 83880; 84484; 85025; 85610; 85730; 93005; 96374; 99284; S0028

== ENCOUNTER 2017-09-10 23:29 | Emergency (ER) | payer MEDICAID ==
[~2017-09-10] VITALS: Ht 175.3 cm; Wt 95.3 kg
[~2017-09-10 23:29] MED LIST changes: +ACETAMINOPHEN-1 EAC1 ORAL; +ATORVASTATIN CA20 MG ORAL; +ISOSORBIDE PO; +MAALOX MAXIMUM355 M1 PO; +NITROGLYCERIN0.4 MG SL
[2017-09-10 23:58] VITALS: BP 149/90
[2017-09-11] MEDS ORDERED: Norco 5mg/325mg tab ORAL ONE
[2017-09-11] MEDS ORDERED: HYDROCODON-ACE1 EA15 ORAL (00:04)
[2017-09-11] MEDS ORDERED: IBUPROFEN600 MG ORAL (00:04)
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
[2017-09-11 01:45] VITALS: BP 142/88
[2017-09-11 01:46] VITALS: BP 142/88
--- NOTE | 2017-09-14 12:02 | Diagnostic Imaging Report ---
Indication: Neck Pain Findings: 5 views of the cervical spine were obtained. Bones are osteopenic. No fracture or malalignment is identified. There is moderate to severe narrowing and vacuum phenomena involving the C5-6 and C6-7 discs with associated uncovertebral osteophyte formation. There is no foraminal stenosis. Soft tissues are unremarkable. Open-mouth view shows good alignment, but the dens is obscured as are the lateral masses.. IMPRESSION: No acute injury. Degenerative disc disease and arthritis at C5-6 and C6-7. Suboptimal visualization of C1 and the dens.
== END 2017-09-11 01:46 | disposition home or self-care (01) ==
LOC: EMR 23:57
DX: S16.1XXA Strain of muscle, fascia and tendon at neck level, initial encounter (principal); V43.62XA Car passenger injured in collision with other type car in traffic accident, initial encounter; Y92.481 Parking lot as the place of occurrence of the external cause; I10 Essential (primary) hypertension; C14.0 Malignant neoplasm of pharynx, unspecified; Z79.899 Other long term (current) drug therapy; I25.2 Old myocardial infarction; K21.9 Gastro-esophageal reflux disease without esophagitis; M50.322 Other cervical disc degeneration at C5-C6 level
CPT/HCPCS: 72052; 99284

== ENCOUNTER 2018-02-04 18:38 | Emergency (ER) | payer MEDICAID ==
[~2018-02-04] VITALS: Ht 175.3 cm; Wt 93.0 kg
[~2018-02-04 18:38] MED LIST changes: +HYDROCODON-ACE1 EA15 ORAL; +IBUPROFEN600 MG ORAL
[2018-02-04 19:00] VITALS: BP 134/97
[2018-02-04] MEDS ORDERED: Bacitracin Oint UD TOPIC ONE (19:00)
[2018-02-04] MEDS ORDERED: Acetaminophen 500mg (ES) tab ORAL ONE (19:00)
--- NOTE | 2018-02-04 19:02 | Emergency Room Report ---
History of Present Illness General Chief Complaint: Laceration Source: Patient Present Illness HPI 62-year-old male patient presents to ER complaining of coccyx pain and laceration on left lower leg for the past 2 days. Reports that he fell off a ladder "a few feet" high onto his buttock. Denies hitting his head or loss consciousness. Denies bowel or bladder incontinence. Denies pain radiating down legs. Reports taking ibuprofen for pain. reports cut lower leg on "wooden block". Reports up to date on tetanus vaccination. Reports pain with ambulation, states he is able ambulate independently without assistance. Denies fever, chest pain, shortness breath, abdominal pain. Requesting imaging of lower leg and coccyx. Denies knee or ankle pain. Allergies: Coded Allergies: No Known Allergies (Unverified , 12/18/14) Patient History Past Medical History: see triage record Reviewed Nursing Documentation: PMH: Agreed; PSxH: Agreed Nursing Documentation-PMH Hx Cardiac Problems: Yes - ID in 2006 Hx Hypertension: Yes Hx Cancer: Yes - Throat Ca Hx Gastrointestinal Problems: Yes - GERD Hx Neurological Problems: No Review of Systems All Other Systems: negative except mentioned in HPI Physical Exam Vital Signs Date Time Temp Pulse Resp B/P (MAP) Pulse Ox O2 Delivery O2 Flow Rate FiO2 02/04/ 18:43 98.2 74 19 138/101 97 Room Air Sp02 EP Interpretation: reviewed, normal General Appearance: well appearing, no apparent distress, alert, GCS 15, non- toxic Head: normocephalic, atraumatic Eyes: bilateral eye normal inspection, bilateral eye PERRL ENT: hearing grossly normal, normal pharynx, no angioedema, normal voice, uvula midline, moist mucus membranes Neck: full range of motion Respiratory: lungs clear, normal breath sounds, no rhonchi, no respiratory distress, no accessory muscle use, no wheezing, speaking full sentences Cardiovascular #1: regular rate, rhythm, no edema Genitourinary: no CVA tenderness Musculoskeletal: back normal, digits/nails normal, gait/station normal, normal range of motion, non-tender, no calf tenderness, pelvis stable, other - NVI, no deformity, tender - right buttock: 1cm circular contusion, no erythema Neurologic: alert, oriented x3, responsive, motor strength/tone normal, SLR negative, sensory intact, cerebellar normal, normal gait, speech normal Psychiatric: mood/affect normal Skin: laceration - left anterior mid shaft lower le cm healing laceration with scabbing, no surrounding erythema or edema, no red streaking, no pus draining, no bleeding Medical Decision Making PA Attestation Dr. Frankel is my supervising Physician whom patient management has been discussed with. Diagnostic Impression: Primary Impression: Fall from ladder Additional Impressions: Coccyx contusion Laceration ER Course Pt. presents to the ED c/o coccyx pain and laceration on left lower leg. Ddx considered but are not limited to fracture, sprain, strain, contusion, dislocation, laceration, cellulitis, abrasion. No erythema, no warmth to touch, no fever, nontoxic appearing, low suspicion for septic joint. denies bowel or bladder incontinence, denies radiation of pain symptoms, low suspicion for cauda equina. Soft compartments, no pulselessness, no pallor, no paresthesias, low suspicion for compartment syndrome at this time. Vital signs: are WNL, pt. is afebrile Ordered X-ray, CT and pain medication. ER COURSE Does not require Tetanus booster, states he is up to date. Laceration cleaned and Bacitracin applied. Dressed in sterile dressing. will not suture laceration closed, will allow to heal by secondary intention due to length of time since initial injury occurred. Will provide with topical abx at discharge to prevent infection. KEep clean and dry. ER precautions given. Provided with pain medication. An X-ray of the left tib/fib shows negative for acute disease. CT of the pelvis shows Colonic diverticula without diverticulitis. Prostatomegaly without pathologic bladder distention. L4-5 disc protrusion. Mild central canal and left neural foraminal stenosis. No fracture. likely contusion causing pain symptoms. discuss results with PCP. Discuss results with the patient. Provided patient with copy of results. Instructed patient to followup with PCP and discuss results of report with patient, discuss need for further treatment and referral. Patient instructed on RICE method: rest, ice, compression, elevation. Patient instructed on rest, ice and heat. Contact information for orthopedic urgent care provided, follow-up with urgent care if unable to followup with primary care provider and get referral to waste specialist. Followup with primary care provider. Discuss referral to ortho/pain management/ PT as needed. Discuss further imaging with MRI/CT as needed. DISCHARGE: -Rx provided for Tylenol for pain symptoms. Rx provided for lidocaine patches -Rx provided for bacitracin At this time pt. is stable for d/c to home. Patient is resting comfortably, in no acute distress, nontoxic appearing, talking without difficulty. Will provide printed patient care instructions, and any necessary prescriptions. Patient instructed to follow with primary care provider in 3 - 5 days and to request further follow-up as needed. Care plan and follow up instructions have been discussed with the patient prior to discharge. Take medications as directed. Patient questions asked and answered. Patient reports understanding and agreement to treatment plan. ER precautions given, patient instructed to return to ER immediately for any new or worsening of symptoms. - Please note that this Emergency Department Report was dictated using [employer] ambassador technology software, occasionally this can lead to erroneous entry secondary to interpretation by the dictation equipment. Other X-Ray Diagnostic Results Other X-Ray Diagnostic Results : X-Ray ordered: left tib-fib # of Views/Limited Vs Complete: 2 View Indication: Pain EP Interpretation: Yes PA Xray: Interpretation reviewed, by supervising MD, and agrees with findings. Interpretation: no dislocation, no soft tissue swelling, no fractures Impression: No acute disease ALYSON Scribjohn Text Rubin Cedillo PA-C CT/MRI/US Diagnostic Results CT/MRI/US Diagnostic Results : Imaging Test Ordered: CT pelvis Impression Colonic diverticula without diverticulitis. Prostatomegaly without pathologic bladder distention. L4-5 disc protrusion. Mild central canal and left neural foraminal stenosis. No fracture. Last Vital Signs Date Time Temp Pulse Resp B/P (MAP) Pulse Ox O2 Delivery O2 Flow Rate FiO2 02/04/18 18:43 98.2 74 19 138/101 97 Room Air Status: improved Disposition: HOME, SELF-CARE Condition: Stable Scripts Acetaminophen* (TYLENOL EXTRA STRENGTH*) 500 Mg Tablet 500 MG ORAL Q8H PRN for Prn Headache/Temp > 101, #30 TAB 0 Refills Prov: Miko Cedillo 02/04/18 Lidocaine (Lidocaine) 1 Each Adh..patch 5 % TP DAILY for 7 Days, #7 PATCH Prov: Miko Cedillo 02/04/18 Bacitracin/Polymyxin B Sulfate (BACITRACIN-POLYMYXIN OINTMENT) 28.35 Gm Oint...g. 1 APPLIC TP BID, #28 GM Prov: Miko Cedillo 02/04/18 Patient Instructions: Contusion, Nonsutured Laceration Care, Tailbone Injury, [id number] Additional Instructions: Patient instructed to follow up with primary care provider and discuss further referral and imaging at that time. Patient instructed on rest, ice and heat. Keep leg elevated while at home resting, ice affected area. Wound check with primary care provided in 2-3 days. Keep clean and dry. Take medications as directed. Patient questions asked and answered. ER precautions given, patient instructed to return to ER immediately for any new or worsening of symptoms. [facility] [address] [facility], [id number] [email or web address] Miko Cedillo Feb 04, 2018 19:02
[2018-02-04] MEDS ORDERED: LIDOCAINE700 M1 TP (19:52)
[2018-02-04] MEDS ORDERED: BACITRACIN-P28.35 GM TP (19:52)
[2018-02-04] MEDS ORDERED: TYLENOL EXTRA500 MG ORAL (19:52)
[2018-02-04 20:00] VITALS: BP 132/82
--- NOTE | 2018-02-05 10:53 | Diagnostic Imaging Report ---
Indication: Coccygeal pain and laceration, fell on buttock Technique: Noncontrast spiral acquisitions obtained through the pelvis. Multiplanar reconstructions generated. Total dose length product 402 mGycm. CTDIvol(s) 14 mGy. Dose reduction achieved using automated exposure control Comparison: none Findings: No acute fractures. No dislocations. The joint spaces are preserved. No evidence of significant soft tissue contusion or hematoma. The included pelvic viscera demonstrate colonic diverticulosis. The prostate is somewhat prominent. There is degenerative change of the lumbosacral junction. Impression: No acute bony trauma Incidental findings of colonic diverticulosis, degenerative lumbosacral spondylosis, prominent prostate This agrees with the preliminary interpretation provided overnight by [facility] teleradiology service. The CT scanner at [facility] is accredited by the [employer] and the scans are performed using protocols designed to limit radiation exposure to as low as reasonably achievable to attain images of sufficient resolution adequate for diagnostic evaluation.
--- NOTE | 2018-02-05 10:54 | Diagnostic Imaging Report ---
Indication: Pain, trauma Technique: 2 views of the left tibia and fibula Comparison: none Findings: No acute fractures. No dislocations. Joint spaces are preserved. No radiopaque foreign body demonstrated Impression: Negative
== END 2018-02-04 20:22 | disposition home or self-care (01) ==
LOC: EMR 19:17
DX: S30.0XXA Contusion of lower back and pelvis, initial encounter (principal); S81.812A Laceration without foreign body, left lower leg, initial encounter; W11.XXXA Fall on and from ladder, initial encounter; Y92.9 Unspecified place or not applicable; K21.9 Gastro-esophageal reflux disease without esophagitis; I10 Essential (primary) hypertension; Z85.89 Personal history of malignant neoplasm of other organs and systems
CPT/HCPCS: 72192; 99284

== ENCOUNTER 2018-04-21 19:11 | Emergency (ER) | payer MEDICAID ==
[~2018-04-21] VITALS: Ht 175.3 cm; Wt 95.3 kg
[~2018-04-21 19:11] MED LIST changes: +BACITRACIN-P28.35 GM TP; +LIDOCAINE700 M1 TP; +TYLENOL EXTRA500 MG ORAL
[2018-04-21 19:24] VITALS: BP 138/81
--- NOTE | 2018-04-21 19:24 | NUR ---
ED Nurse Note: Pt arrived ED from home. C/o lower back pain today which he fell at home 2 month ago. Pt is A/o x4. Vital signs stable at this time. Waiting for orders.
[2018-04-21] MEDS ORDERED: Ketorolac 60mg Inj IM ONE (19:45)
[2018-04-21] MEDS ORDERED: Cyclobenzaprine 10mg Tab ORAL ONE (19:45)
[2018-04-21 20:30] LABS: APPEARANCE,URINE SLIGHTLY CLOUDY; BILIRUBIN, URINE NEGATIVE (NEGATIVE); COLOR,URINE AMBER; GLUCOSE, URINE (UA) NEGATIVE (NEGATIVE); KETONES,URINE NEGATIVE (NEGATIVE); LEUKOCYTE ESTERASE ,URINE 1+ (NEGATIVE); NITRITE,URINE NEGATIVE (NEGATIVE); PH,URINE 6 (4.5-8.0); PROTEIN,URINE 3+ (NEGATIVE); UROBILINOGEN,URINE 1 MG/DL (0.0-1.0)
[2018-04-21] MEDS ORDERED: CEPHALEXIN500 MG ORAL (20:49)
[2018-04-21] MEDS ORDERED: NORCO 10-325 T1 EACH ORAL (20:49)
[2018-04-21 20:54] VITALS: BP 137/82
--- NOTE | 2018-04-21 20:54 | NUR ---
ED Nurse Note: Pt has seen by Dr. Cedeño. All orders carried out. Meds given. Pt is ready for discharge. D/c instruction and prescription given, Pt verbalized understanding. ID band removed. Pt d/c from ED with steady gait.
--- NOTE | 2018-04-21 22:19 | Emergency Room Report ---
History of Present Illness General Chief Complaint: Lower Back Pain or Injury Source: Patient Present Illness HPI The patient is a 62-year-old male presenting for continued back pain. He was seen in this emergency department The patient is a 62-year-old male presenting for continued back pain. He was seen in this emergency department several months prior after falling off a ladder. He had imaging done at that time which showed a disc herniation. Pain is a 7 out of 10 dull ache and does not radiate from the mid lower back. He has been using ibuprofen which does help. He denies any numbness or tingling. He denies any bowel or bladder incontinence. He denies other symptoms including nausea, vomiting, fever, chills, dysuria, hematuria, abdominal pain Allergies: Coded Allergies: No Known Allergies (Unverified , 12/18/14) Patient History Past Medical History: see triage record Pertinent Family History: none Reviewed Nursing Documentation: PMH: Agreed; PSxH: Agreed Nursing Documentation-PMH Past Medical History: No History, Except For Hx Cardiac Problems: Yes - PR in 2005 Hx Hypertension: Yes Hx Cancer: Yes - Throat Ca Hx Gastrointestinal Problems: Yes - GERD Hx Neurological Problems: No Review of Systems All Other Systems: negative except mentioned in HPI Physical Exam Vital Signs Date Time Temp Pulse Resp B/P (MAP) Pulse Ox O2 Delivery O2 Flow Rate FiO2 04/21/18 19:15 98.2 82 16 140/87 93 Room Air Sp02 EP Interpretation: reviewed, normal General Appearance: no apparent distress, alert, GCS 15, non-toxic Head: normocephalic, atraumatic Eyes: bilateral eye normal inspection, bilateral eye PERRL Respiratory: chest non-tender, lungs clear, normal breath sounds, speaking full sentences Cardiovascular #1: regular rate, rhythm, no edema Gastrointestinal: normal bowel sounds, non tender, soft, non-distended, no guarding, no rebound Genitourinary: normal inspection, no CVA tenderness, penis normal Musculoskeletal: back normal, gait/station normal, normal range of motion, tender - lumbar paraspinal muscles Neurologic: alert, oriented x3, responsive, motor strength/tone normal, sensory intact, speech normal Psychiatric: judgement/insight normal, memory normal, mood/affect normal, no suicidal/homicidal ideation Skin: normal color, no rash, warm/dry, well hydrated Medical Decision Making PA Attestation Dr. Frankel is my supervising physician. Patient management was discussed with my supervising physician Diagnostic Impression: Primary Impression: Lumbar strain Qualified Codes: S39.012A - Strain of muscle, fascia and tendon of lower back , initial encounter Additional Impression: Hematuria Qualified Codes: R31.9 - Hematuria, unspecified ER Course The patient is a 62-year-old male presenting for continued back pain. Ddx considered include but not limited to lumbar strain, degenerative disease, disc herniation, pyelonephritis, among others PE: afebrile. NAD Tenderness to palpation over the bilateral lumbar paraspinal muscles. No midline tenderness or step-offs. No CVA tenderness Normal gait Sensation is intact Urinalysis shows hematuria as well as white blood cells and some bacteria The patient be discharged home with prescription for pain medication and antibiotics for possible UTI/pyelonephritis. He was told he needs to follow-up with his primary doctor as soon as possible as well as possibly obtain referral to urology and/or nephrology. ER precautions given Laboratory Tests Test 04/21/18 20:15 Urine Color Alexia Urine Appearance Slightly cloudy Urine pH 6 (4.5-8.0) Urine Specific Chama 1.010 (1.005-1.035) Urine Protein 3+ (NEGATIVE) H Urine Glucose (UA) Negative (NEGATIVE) Urine Ketones Negative (NEGATIVE) Urine Blood 2+ (NEGATIVE) H Urine Nitrite Negative (NEGATIVE) Urine Bilirubin Negative (NEGATIVE) Urine Ictotest Negative (NEGATIVE) Urine Urobilinogen 1 MG/DL (0.0-1.0) H Urine Leukocyte Esterase 1+ (NEGATIVE) H Urine RBC 5-10 /HPF (0 - 0) H Urine WBC 2-4 /HPF (0 - 0) Urine Squamous Epithelial Cells Occasional /LPF Urine Bacteria Few /HPF (NONE) Urine Mucus Moderate /LPF (NONE/OCC) H Lab Results Impression Urinalysis shows hematuria as well as white blood cells and some bacteria Last Vital Signs Date Time Temp Pulse Resp B/P (MAP) Pulse Ox O2 Delivery O2 Flow Rate FiO2 04/21/18 20:54 98.1 75 16 137/82 96 Room Air Status: improved Disposition: HOME, SELF-CARE Condition: Improved Scripts Cephalexin* (KEFLEX*) 500 Mg Capsule 500 MG ORAL EVERY 6 HOURS, #28 CAP Prov: TERZIAN,CANDIDA P.A. 04/21/18 Hydrocodone Bit/Acetaminophen 10-325* (NORCO 10-325*) 1 Each Tablet 1 TAB ORAL Q6H PRN for For Pain, #10 TAB 0 Refills PRN PAIN Prov: CANDIDA MCLEOD 04/21/18 Patient Instructions: Back Pain, Adult, Proteinuria, Hematuria, Adult Additional Instructions: The patient was informed of the urine results including protein and blood in the urine. He was told he needs to follow-up with his primary doctor and kidney doctor as soon as possible. Please return to the emergency Department if you notice any symptoms including: Continued or worsening back pain, fever, chills, pain with urination CANDIDA MCLEOD Apr 21, 2018 22:19
== END 2018-04-21 20:54 | disposition home or self-care (01) ==
LOC: EMR 19:45
DX: S39.012A Strain of muscle, fascia and tendon of lower back, initial encounter (principal); W11.XXXA Fall on and from ladder, initial encounter; Y92.9 Unspecified place or not applicable; I10 Essential (primary) hypertension; I25.2 Old myocardial infarction; Z85.89 Personal history of malignant neoplasm of other organs and systems; K21.9 Gastro-esophageal reflux disease without esophagitis; R31.9 Hematuria, unspecified
CPT/HCPCS: 81003; 96372; 99283

== ENCOUNTER 2019-03-11 14:13 | Emergency (ER) | payer MEDICAID ==
[~2019-03-11] VITALS: Ht 175.3 cm; Wt 93.4 kg
[~2019-03-11 14:13] MED LIST changes: +CEPHALEXIN500 MG ORAL; +NORCO 10-325 T1 EACH ORAL
[2019-03-11 14:20] VITALS: BP 133/89
--- NOTE | 2019-03-11 14:20 | NUR ---
ED Nurse Note: Patient arrived to ED from home complaining of increased fatigue and back pain x 1 week. He states he normally feels okay but has been more tired than usual despite sleeping throughout the night. Patient AxO x 4, back pain 8/10 aching pain in the low back. IV started. Blood sent to lab.
--- NOTE | 2019-03-11 14:40 | Emergency Room Report ---
History of Present Illness General Chief Complaint: Generalized Weakness Source: Patient Present Illness HPI 63-year-old male past history of hypertension, hyperlipidemia, CAD, diagnosis of hep C January 01/2019, patient states he has remitting and relapsing fatigue over the past couple of months now over the past 1 week he feels generalized fatigue aches, no fevers no chills no chest pain or shortness of breath, he feels more tired, no dyspnea on exertion, no known aggravating relieving factors severity is moderate. He states he was unable to get into a specialist clinic to be seen for hepatitis C, he is worried about the diagnosis. Allergies: Coded Allergies: No Known Allergies (Unverified , 12/18/14) Patient History Past Medical History: see triage record Reviewed Nursing Documentation: PMH: Agreed; PSxH: Agreed Nursing Documentation-PMH Hx Cardiac Problems: Yes - [place] in 2005 Hx Hypertension: Yes Hx Cancer: Yes - Throat Ca Hx Gastrointestinal Problems: Yes - GERD Hx Neurological Problems: No Review of Systems All Other Systems: negative except mentioned in HPI Physical Exam Vital Signs Date Time Temp Pulse Resp B/P (MAP) Pulse Ox O2 Delivery O2 Flow Rate FiO2 03/11/19 14:15 98.2 91 18 133/89 (104) 90 Room Air Sp02 EP Interpretation: reviewed, normal General Appearance: well appearing, no apparent distress, alert Head: normocephalic, atraumatic Eyes: bilateral eye PERRL, bilateral eye EOMI ENT: uvula midline, moist mucus membranes Neck: supple, thyroid normal, supple/symm/no masses Respiratory: lungs clear, no respiratory distress, no retraction, no accessory muscle use Cardiovascular #1: normal peripheral pulses, regular rate, rhythm, no edema, no gallop, no murmur Gastrointestinal: non tender, soft, no guarding, no rebound Musculoskeletal: normal inspection Neurologic: alert, oriented x3 Psychiatric: mood/affect normal Skin: no rash, warm/dry Medical Decision Making Diagnostic Impression: Primary Impression: Episode of generalized weakness Additional Impressions: Hepatitis C antibody test positive CKD (chronic kidney disease) Qualified Codes: N18.9 - Chronic kidney disease, unspecified ER Course 63-year-old male presents with generalized fatigue, no red flags noted, differential diagnosis includes ACS, anemia of chronic disease, hypothyroidism Patient more concerned about the hepatitis C test that was positive, patient given a referral to our GI doctors, patient counseled that he will have to determine if his insurance will cover it No acute emergent pathology at this time patient was a complex case CKD, patient was also given fluid rehydration Disposition home with return precautions Laboratory Tests Test 03/11/19 14:50 White Blood Count 9.5 K/UL (4.8-10.8) Red Blood Count 5.31 M/UL (4.70-6.10) Hemoglobin 15.8 G/DL (14.2-18.0) Hematocrit 47.2 % (42.0-52.0) Mean Corpuscular Volume 89 FL (80-99) Mean Corpuscular Hemoglobin 29.8 PG (27.0-31.0) Mean Corpuscular Hemoglobin Concent 33.5 G/DL (32.0-36.0) Red Cell Distribution Width 12.8 % (11.6-14.8) Platelet Count 354 K/UL (150-450) Mean Platelet Volume 6.3 FL (6.5-10.1) L Neutrophils (%) (Auto) 78.0 % (45.0-75.0) H Lymphocytes (%) (Auto) 13.7 % (20.0-45.0) L Monocytes (%) (Auto) 3.8 % (1.0-10.0) Eosinophils (%) (Auto) 3.6 % (0.0-3.0) H Basophils (%) (Auto) 0.9 % (0.0-2.0) Prothrombin Time 11.6 SEC (9.30-11.50) H Prothrombin Time INR 1.1 (0.9-1.1) PTT 31 SEC (23-33) Urine Color Pale yellow Urine Appearance Clear Urine pH 5 (4.5-8.0) Urine Specific [place] 1.010 (1.005-1.035) Urine Protein 2+ (NEGATIVE) H Urine Glucose (UA) Negative (NEGATIVE) Urine Ketones Negative (NEGATIVE) Urine Blood 1+ (NEGATIVE) H Urine Nitrite Negative (NEGATIVE) Urine Bilirubin Negative (NEGATIVE) Urine Urobilinogen Normal MG/DL (0.0-1.0) Urine Leukocyte Esterase Negative (NEGATIVE) Urine RBC 2-4 /HPF (0 - 0) H Urine WBC 0-2 /HPF (0 - 0) Urine Squamous Epithelial Cells None /LPF (NONE/OCC) Urine Bacteria Few /HPF (NONE) Sodium Level 143 MMOL/L (136-145) Potassium Level 5.4 MMOL/L (3.5-5.1) H Chloride Level 106 MMOL/L (98-107) Carbon Dioxide Level 29 MMOL/L (21-32) Anion Gap 8 mmol/L (5-15) Blood Urea Nitrogen 40 mg/dL (7-18) H Creatinine 3.0 MG/DL (0.55-1.30) H Estimate Glomerular Filtration Rate 25.7 mL/min (>60) Glucose Level 103 MG/DL (74-106) Calcium Level 9.2 MG/DL (8.5-10.1) Phosphorus Level 4.3 MG/DL (2.5-4.9) Magnesium Level 2.0 MG/DL (1.8-2.4) Total Bilirubin 0.6 MG/DL (0.2-1.0) Aspartate Amino Transferase (AST) 41 U/L (15-37) H Alanine Aminotransferase (ALT) 52 U/L (12-78) Alkaline Phosphatase 68 U/L (46-116) Troponin I 0.000 ng/mL (0.000-0.056) Total Protein 8.0 G/DL (6.4-8.2) Albumin 3.8 G/DL (3.4-5.0) Globulin 4.2 g/dL Albumin/Globulin Ratio 0.9 (1.0-2.7) L Lipase 236 U/L (73-393) Thyroid Stimulating Hormone (TSH) 0.393 uiU/mL (0.358-3.740) Free Thyroxine 1.06 NG/DL (0.76-1.46) Free Triiodothyronine 2.3 pg/mL (2.3-4.2) EKG Diagnostic Results EKG Time: 14:38 EP Interpretation: NSR, rate 80, QTc 417, no acute ST elevations, normal axis Rhythm Strip Diag. Results Rhythm Strip Time: 14:46 EP Interpretation: yes Rate: 88 Rhythm: NSR, no PVC's, no ectopy Chest X-Ray Diagnostic Results Chest X-Ray Diagnostic Results : Chest X-Ray Ordered: Yes # of Views/Limited/Complete: 1 View Indication: Other - Weakness EP Interpretation: Yes Interpretation: no consolidation, no effusion, no pneumothorax, no acute cardiopulmonary disease Impression: No acute disease Electronically Signed by: Dhiraj Can MD Last Vital Signs Date Time Temp Pulse Resp B/P (MAP) Pulse Ox O2 Delivery O2 Flow Rate FiO2 03/11/19 14:15 98.2 91 18 133/89 (104) 90 Room Air Disposition: HOME, SELF-CARE Condition: Stable Referrals: Yana Harris MD, Mehrdad MD Patient Instructions: Chronic Kidney Disease, [id number], Hepatitis C, Easy- to-Read, Weakness Additional Instructions: The patient was provided with discharge instructions, notified to follow-up with a primary care doctor and or specialist in the next 24-48 hours, and to return to the ED if they have worsening of their symptoms. Please note that this report is being documented using [employer] technology. This can lead to erroneous entry secondary to incorrect interpretation by the dictating instrument. PLEASE REFER TO YOUR INSURANCE IN REGARDS TO SEEING THE GASTROENTEROLOGISTS TO DETERMINE IF YOUR INSURANCE WILL COVER THE VISIT. YOU CAN SEARCH PEOPLE WHO MAY TAKE YOUR INSURANCE ON [email or web address] Dhiraj Can MD Mar 11, 2019 14:40
[2019-03-11 15:45] LABS: APPEARANCE,URINE CLEAR; BILIRUBIN, URINE NEGATIVE (NEGATIVE); COLOR,URINE PALE YELLOW; GLUCOSE, URINE (UA) NEGATIVE (NEGATIVE); KETONES,URINE NEGATIVE (NEGATIVE); LEUKOCYTE ESTERASE ,URINE NEGATIVE (NEGATIVE); NITRITE,URINE NEGATIVE (NEGATIVE); PH,URINE 5 (4.5-8.0); PROTEIN,URINE 2+ (NEGATIVE); UROBILINOGEN,URINE NORMAL MG/DL (0.0-1.0)
[2019-03-11 15:53] LABS: ANION GAP 8 mmol/L (5-15); BLOOD UREA NITROGEN 40 mg/dL (7-18); CALCIUM 9.2 MG/DL (8.5-10.1); CARBON DIOXIDE 29 MMOL/L (21-32); CHLORIDE 106 MMOL/L (98-107); POTASSIUM 5.4 MMOL/L (3.5-5.1); SODIUM 143 MMOL/L (136-145)
--- NOTE | 2019-03-11 15:53 | Diagnostic Imaging Report ---
Indication: Dyspnea Comparison: 09/08/2016 A single view chest radiograph was obtained. Findings: Cardiomediastinal appearance is mildly prominent but within normal limits for age. The lungs are clear. Pulmonary vascularity is appropriate. The diaphragmatic contour is smooth and costophrenic angles are sharp. No pleural effusions are identified. The bones are unremarkable. Impression: No acute findings
[2019-03-11 15:54] LABS: BASOPHILS % (AUTO) 0.9 % (0.0-2.0); EOSINOPHILS % (AUTO) 3.6 % (0.0-3.0); HEMATOCRIT 47.2 % (42.0-52.0); HEMOGLOBIN 15.8 G/DL (14.2-18.0); LYMPHOCYTES % (AUTO) 13.7 % (20.0-45.0); MEAN CORPUSCULAR VOLUME 89 FL (80-99); MONOCYTES % (AUTO) 3.8 % (1.0-10.0); PLATELET COUNT 354 K/UL (150-450); RED BLOOD COUNT 5.31 M/UL (4.70-6.10); RED CELL DISTRIBUTION WIDTH 12.8 % (11.6-14.8); WHITE BLOOD COUNT 9.5 K/UL (4.8-10.8)
[2019-03-11 15:55] LABS: INR 1.1 (0.9-1.1)
[2019-03-11 16:09] LABS: ALANINE AMINOTRANSFERASE 52 U/L (12-78); ALBUMIN 3.8 G/DL (3.4-5.0); ALBUMIN/GLOBULIN RATIO 0.9 (1.0-2.7); ALKALINE PHOSPHATASE 68 U/L (46-116); ASPARTATE AMINO TRANSFERASE 41 U/L (15-37); BILIRUBIN,TOTAL 0.6 MG/DL (0.2-1.0); PHOSPHORUS 4.3 MG/DL (2.5-4.9)
[2019-03-11 16:10] VITALS: BP 128/84
[2019-03-11 16:45] VITALS: BP 128/87
--- NOTE | 2019-03-11 16:45 | NUR ---
ER DISCHARGE NOTE: Patient is cleared to be discharged per ERMD, pt is aox4, on room air, with stable vital signs. pt was given dc and prescription instructions, pt was able to verbalize understanding, pt id band and iv site removed without complications. pt is able to ambulate with steady gait. pt took all belongings.
== END 2019-03-11 16:45 | disposition home or self-care (01) ==
LOC: EMR 15:02
DX: R53.1 Weakness (principal); I12.9 Hypertensive chronic kidney disease with stage 1 through stage 4 chronic kidney disease, or unspecified chronic kidney disease; N18.9 Chronic kidney disease, unspecified; K21.9 Gastro-esophageal reflux disease without esophagitis; Z85.819 Personal history of malignant neoplasm of unspecified site of lip, oral cavity, and pharynx; I10 Essential (primary) hypertension; I25.2 Old myocardial infarction; E78.5 Hyperlipidemia, unspecified; I11.9 Hypertensive heart disease without heart failure; B19.20 Unspecified viral hepatitis C without hepatic coma
CPT/HCPCS: 36415; 71045; 80053; 81003; 83690; 83735; 84100; 84439; 84443; 84481; 84484; 85025; 85610; 85730; 93005; 96360; Z7502; 99284

== ENCOUNTER 2020-02-12 13:35 | Outpatient (CLI) | payer MEDICARE, MEDICAID ==
[~2020-02-12] VITALS: Ht 175.3 cm; Wt 95.3 kg
[2020-02-12 14:03] VITALS: BP 115/84
[2020-02-12 14:19] VITALS: BP 115/84
== END 2020-02-12 15:35 | disposition home or self-care (01) ==
LOC: PAN 13:35
DX: K75.9 Inflammatory liver disease, unspecified (principal)
CPT/HCPCS: G0463